=== PATIENT | female | born 1950 | race Caucasian/White ===

== ENCOUNTER 2016-07-11 13:25 | Outpatient (RCR) | payer MEDICARE, OTHER ==
--- OUTSIDE RECORDS SUMMARY | 2016-07-10 17:58 | XMS REPORT | Continuity of Care Document ---
Author Author [facility] Organization [facility] Address Unknown Phone Unavailable Care Team Providers Care Digital Hardware Design Engineer Name Role Phone DAQUAN AVENDANO MD PCP Insurance Providers Payer Name Policy Number Subscriber Name Relationship Wps Medicare [id number] Chloe Greer 18 Self / Same As Patient [employer] [id number] Chloe Greer 18 Self / Same As Patient Advance Directives Directive Response Recorded Date/Time Advance Directives No 09/09/15 12:00am Health Care Power of Project Management Instructor No 09/08/15 9:01pm Organ Donor Yes 09/09/15 12:00am Problems Active Problems Medical Problem Onset Date Status Chest pain Unknown Acute Constipation Unknown Acute Fracture of fifth toe, right, closed Unknown Acute Medications Current Home Medications Medication Dose Units Route Directions Days/Qty Instructions Start Date Carisoprodol 350 Mg 350 Mg Oral Twice A Day 11/01/09 Gemfibrozil (Lopid) 600 Mg 600 Mg Oral Twice A Day 11/01/09 Amitriptyline Hcl (Elavil) 25 Mg 25 Tab Oral Bedtime 11/01/09 Potassium 99 Mg 198 Mg Oral Bedtime TAKES 2 TABS AT BEDTIME 11/01/09 Milnacipran Hcl 50 Mg 50 Mg Oral Daily 11/19/12 Omeprazole 20 Mg 20 Mg Oral Twice A Day 11/19/12 Cholecalciferol 5,000 Unit 5,000 Unit Oral Daily 11/19/12 Cyanocobalamin (Vitamin B 12 Injecting) 1,000 Mcg/Ml 1 Ml Injection Every 2 Weeks LAST DOSE 04-06-13 11/19/12 Diazepam (Valium) 5 Mg 5 Mg Oral Twice A Day 11/19/12 Selenium 200 Mcg 200 Mcg Oral Daily 11/19/12 Levothyroxine Sodium (Levothroid) 25 Mcg 25 Mcg Oral Daily 11/19/12 Guaifenesin 400 Mg 400 Mg Oral Twice A Day 11/19/12 Ascorbate Calcium/Bioflav 1 Each 1,000 Mg Oral Daily 11/19/12 Estradiol 42.5 Gm 1 Appful Vaginal Weekly 11/19/12 Magnesium Oxide 400 Mg 400 Mg Oral Daily 11/19/12 Clonazepam 1 Mg 1 Mg Oral Twice A Day 04/29/13 Vitamin E (Dl,Tocopheryl Acet) 1,000 Unit 1,000 Unit Oral Daily Loratadine 10 Mg 10 Mg Oral Daily 05/21/15 Amlodipine Besylate 5 Mg 5 Mg Oral Three Times A Day 09/09/15 Ibuprofen 200 Mg 600 Mg Oral Four Times Daily 120 09/09/15 Methocarbamol 750 Mg 750 Mg Oral Twice A Day 09/09/15 Past Home Medications Medication Directions Ordered Status Pregabalin 75 Mg Capsule, 11/01/09 Discontinued [Vitamin E 400U] , 11/01/09 Discontinued Carvedilol (Coreg) 3.125 Mg Tablet, 11/01/09 Discontinued Terazosin Hcl 2 Mg Tab, 11/01/09 Discontinued Citalopram Hydrobromide 20 Mg Tablet, 11/01/09 Discontinued Ibandronate Sodium 2.5 Mg Tablet, 11/01/09 Discontinued Fexofenadine Hcl 180 Mg Tablet, 11/01/09 Discontinued Ranitidine Hcl 150 Mg Tablet, 11/01/09 Discontinued Esomeprazole Magnesium 40 Mg Capsule., 11/01/09 Discontinued Lidocaine 1 Ea Patch, 11/01/09 Discontinued Propoxyphene Hcl/Acetaminophen 1 Tab Tablet, 11/01/09 Discontinued Acetaminophen/Hydrocodone Bitart 1 Each Tablet, 1 Each Oral Q 4 - 6 Hr Prn Discontinued Promethazine Hcl 25 Mg Tablet, 1 Tab Oral Four Times Daily 11/01/09 Discontinued Clonazepam 0.5 Mg Tablet, 0.5 Mg Oral Daily 11/19/12 Discontinued Clonazepam (Klonopin) 0.5 Mg Tablet, 1 Mg Oral Bedtime 11/19/12 Discontinued Vitamin E 800 Unit Capsule, 800 Unit Oral Daily 11/19/12 Discontinued Amlodipine Besylate (Norvasc 5 Mg) 5 Mg Tablet, 5 Mg Oral Twice A Day Discontinued Oxycodone Hcl/Acetaminophen 1 Tab Tablet, 1 - 2 Tab Oral Every 3 Hours as needed 11/24/12 Discontinued Docusate Sodium 100 Mg Capsule, 100 Mg Oral Twice A Day 11/24/12 Discontinued Dicyclomine Hcl 10 Mg Capsule, 10 Mg Oral Four Times Daily 04/29/13 Discontinued Ketorolac Tromethamine 10 Mg Tablet, 10 Mg Oral Every 6 Hours as needed 04/29 Discontinued Oxycodone Hcl/Acetaminophen 1 Each Tablet, 1 - 2 Each Oral Q4-6H Prn Discontinued Sennosides/Docusate Sodium 1 Each Tablet, 1 Each Oral Twice A Day for Constipation 05/08/13 Discontinued Meperidine Hcl 50 Mg Tablet, 50 Mg Oral Every 4HRS as needed for Pain Discontinued Social History Social History Problem Response Recorded Date/Time Alcohol Use Occasionally Uses 09/09/2015 12:00am Recreational Drug Use No 09/09/2015 12:00am Recent Foreign Travel No 11/01/2015 10:21am Sexually Transmitted Disease No 09/09/2015 12:00am HIV/AIDS No 09/09/2015 12:00am Do you dip or chew tobacco? No 09/09/2015 12:00am Hospital Discharge Instructions No hospital discharge instructions. Plan of Care Prescriptions See Medication Section Functional Status No functional status results. Allergies, Adverse Reactions, Alerts Allergen Type Severity Reaction Status Last Updated sumatriptan succinate Allergy Unknown Active 05/20/15 nebivolol HCl Allergy Unknown Active 05/20/15 rizatriptan benzoate Allergy Unknown Active 05/20/15 Penicillins ([id number]) Allergy Mild Active 11/01/09 Sulfa (Sulfonamide Antibiotics) ([id number]) Allergy Mild Active lisinopril ([id number]) Allergy Unknown Active 05/20/15 Morphine Allergy Unknown Active 05/20/15 Codeine Allergy Mild Active 11/01/09 hydrocodone ([id number]) Allergy Unknown Active 05/20/15 Oxycodone Allergy Severe RASH Active 05/08/13 Sumatriptan Allergy Unknown Active 05/20/15 Tramadol Allergy Mild Active 11/01/09 shrimp Allergy Mild Active 05/22/15 Immunizations Name Given Type Date of Pneumonia Vaccine 06/06/12 Historical Date of Influenza Vaccine 04/13/15 Historical Hepatitis A No Historical Hepatitis B No Historical Tetanus Booster (TDap) Less than 5yrs Historical Vital Signs No known vital signs results. Results Microbiology Results Procedure Source Result Collection Date/Time Result Date/Time Anaerobic Culture Tissue, Ulcer No growth 11/01/2015 11:45am 11/03/2015 12: 31pm Wound Culture Tissue, Ulcer No growth 11/01/2015 11:45am 11/02/2015 9:16am Procedures No known history of procedures. Encounters Encounter Location Arrival/Admit Date Discharge/Depart Date Attending Provider Discharged Recurring [facility] 12/19/15 11:21am 12:00pm DENAE KEENAN MD
[2016-07-10 18:37] LABS: BASOPHILS % (AUTO) 0 % (0-10); EOSINOPHILS # (AUTO) 0.2 10^3/uL (0.0-0.3); EOSINOPHILS % (AUTO) 3 % (0-10); LYMPHOCYTES % (AUTO) 26 % (12-44); MEAN CORPUSCULAR HEMOGLOBIN 32 PG (25-34); MEAN CORPUSCULAR HGB CONC 35 G/DL (32-36); MEAN CORPUSCULAR VOLUME 90 FL (80-99); MEAN PLATELET VOLUME 11.1 FL (7.4-10.4); MONOCYTES # (AUTO) 0.9 X 10^3 (0.0-1.0); MONOCYTES % (AUTO) 12 % (0-12); NEUTROPHILS # (AUTO) 4.4 X 10^3 (1.8-7.8); NEUTROPHILS % (AUTO) 59 % (42-75); PLATELET COUNT 251 10^3/uL (130-400); RED BLOOD COUNT 4.24 10^6/uL (4.35-5.85); RED CELL DISTRIBUTION WIDTH 14.8 % (10.0-14.5); WHITE BLOOD COUNT 7.4 10^3/uL (4.3-11.0)
--- NOTE | 2016-07-10 18:40 | Diagnostic Imaging Report ---
INDICATION: Cough, weakness, fever. Compared 09/08/2015. FINDINGS: Interval sternotomy is noted. No wire fracture identified. Heart size within the upper limits of normal, stable. No overt vascular congestion and no evidence for edema. No pleural fluid. Air trapping and COPD chronic. IMPRESSION: Chronic and postoperative change. No acute-appearing abnormality. Dictated by: Dictated on workstation # [id number]
[2016-07-10 18:58] LABS: BILIRUBIN,URINE NEGATIVE (NEGATIVE); KETONES,URINE NEGATIVE (NEGATIVE); LEUKOCYTE ESTERASE ,URINE NEGATIVE (NEGATIVE); NITRITE,URINE NEGATIVE (NEGATIVE); PH,URINE 7 (5-9); PROTEIN,URINE NEGATIVE (NEGATIVE); UROBILINOGEN,URINE NORMAL (NORMAL)
[2016-07-10 19:06] LABS: ALANINE AMINOTRANSFERASE 17 U/L (0-55); ALBUMIN 4.7 G/DL (3.2-4.5); ANION GAP 12 MMOL/L (5-14); ASPARTATE AMINO TRANSFERASE 20 U/L (5-34); BILIRUBIN,TOTAL 0.3 MG/DL (0.1-1.0); BLOOD UREA NITROGEN 8 MG/DL (7-18); BUN/CREATININE RATIO 11; CALCIUM 9.2 MG/DL (8.5-10.1); CARBON DIOXIDE 25 MMOL/L (21-32); CHLORIDE 103 MMOL/L (98-107); CREATININE SERUM 0.75 MG/DL (0.60-1.30); GFR ESTIMATED > 60; GLUCOSE 89 MG/DL (70-105); POTASSIUM 3.4 MMOL/L (3.6-5.0); SODIUM 140 MMOL/L (135-145)
[~2016-07-11 13:25] MED LIST: AMIT25TA9 PO; AMLO5TAB2 PO; ASCO1TAB36 PO; CARV3.122; CHOL50003 PO; CLON0.5T3 PO; CLON1TAB3 PO; CRS350T PO; CTLP20T; CYAN100053 IJ; DCS100C PO; DIAZ5TAB3 PO; DICY10CA12 PO; ESTR42.52 VG; FEXO180T; GEMF600T3 PO; GUAI400T11 PO; HYDR-707 PO; IBAN2.5T; IBUP-792 PO; IBUP200C75 PO; KETO-22 PO; LD5PT; LORA10TA7 PO; LORA10TA76 PO; LVT.025T PO; MAGN400C PO; MEPE50TA PO; METH-313 PO; METH750T3 PO; MILN50TA6 PO; MTH750T PO; NF-ESOM40C; OMEP20CA12 PO; OXYC-12 PO; OXYC-272 PO; POTA99TA7 PO; PREG75CA; PRM25T PO; PROP1TAB77; RNT150T; SELE200T2 PO; SENN-101 PO; TRZS2T; VITA-198 PO; VITA800C PO; VITAMIN E
--- OUTSIDE RECORDS SUMMARY | 2016-07-11 13:28 | XMS REPORT | Continuity of Care Document ---
Author Author [facility] Organization [facility] Address Unknown Phone Unavailable Care Team Providers Care Staff Certified Nurse Midwife Name Role Phone DAQUAN AVENDANO MD PCP Insurance Providers Payer Name Policy Number Subscriber Name Relationship Wps Medicare [id number] Chloe Greer 18 Self / Same As Patient [employer] [id number] Chloe Greer 19 Self / Same As Patient Advance Directives Directive Response Recorded Date/Time Advance Directives No 09/09/15 12:00am Health Care Power of It Senior Software Engineer Java No 09/08/15 9:01pm Organ Donor Yes 09/09/15 [...] rizatriptan benzoate Allergy Unknown Active 05/20/15 Penicillins ([id number]) Allergy Mild Active 11/01/09 Sulfa (Sulfonamide Antibiotics) ([id number]) Allergy Mild Active lisinopril ([id number]) Allergy Unknown Active 05/20/15 Morphine Allergy Unknown Active 05/20/15 Codeine Allergy Mild Active 11/01/09 hydrocodone ([id number]) Allergy Unknown Active 05/20/15 Oxycodone Allergy Severe [...] Discharge/Depart Date Attending Provider Discharged Recurring [facility] 12/19/15 11:21am 12:00pm DENAE KEENAN MD
== END 2016-07-11 13:26 | disposition home or self-care (01) ==
LOC: RAD 13:25
PROVIDERS: ATTEND Internal Medicine
DX: R05 Cough (principal); R19.7 Diarrhea, unspecified; R50.9 Fever, unspecified
CPT/HCPCS: 36415; 71020; 80053; 81000; 85025; 87324; 87449; 87493

== ENCOUNTER 2017-01-01 05:40 | Outpatient (CLI) | payer MEDICARE, OTHER ==
[~2017-01-01] VITALS: Ht 157.5 cm; Wt 59.0 kg
[2017-01-01] MEDS ORDERED: ASPI-586 PO (11:09)
[2017-01-01] MEDS ORDERED: POTA10TA10 PO (11:09)
[2017-01-01] MEDS ORDERED: FURO-125 PO (11:09)
[2017-01-01] MEDS ORDERED: BACL10TA PO (11:09)
[2017-01-01] MEDS ORDERED: CLOP75TA28 PO (11:09)
== END 2017-01-01 11:10 ==
LOC: PREOP 05:40
PROVIDERS: ATTEND Internal Medicine
DX: Z01.818 Encounter for other preprocedural examination (principal); R13.10 Dysphagia, unspecified

== ENCOUNTER 2017-01-03 09:03 | Day surgery (SDC) | payer MEDICARE, OTHER ==
[~2017-01-03] VITALS: Ht 157.5 cm; Wt 59.0 kg
[~2017-01-03 09:03] MED LIST changes: +ASPI-586 PO; +BACL10TA PO; +CLOP75TA28 PO; +FURO-125 PO; +POTA10TA10 PO
[2017-01-03 09:05] VITALS: BP 120/48
--- OUTSIDE RECORDS SUMMARY | 2017-01-03 09:09 | XMS REPORT | Continuity of Care Document ---
Author Author [facility] Organization [facility] Address Unknown Phone Unavailable Allergies Active Description Code Type Severity Reaction Onset Reported/Identified Relationship to Patient Clinical Status Yes codeine [id number] Drug Allergy Mild N/A 11/01/2009 Yes Penicillins [id number] Drug Allergy Mild N/A 11/01/2009 Yes tramadol [id number] Drug Allergy Mild N/A 11/01/2009 Yes Sulfa (Sulfonamide Antibiotics) [id number] Drug Allergy Mild N/A 09/28/2010 Yes oxycodone [id number] Drug Allergy Severe RASH 05/08/2013 Yes hydrocodone [id number] Drug Allergy Unknown N/A 05/20/2015 Yes lisinopril [id number] Drug Allergy Unknown N/A 05/20/2015 Yes morphine [id number] Drug Allergy Unknown N/A 05/20/2015 Yes nebivolol HCl [id number] Drug Allergy Unknown N/A 05/20/2015 Yes rizatriptan benzoate [id number] Drug Allergy Unknown N/A 05/20/2015 Yes sumatriptan [id number] Drug Allergy Unknown N/A 05/20/2015 Yes sumatriptan succinate [id number] Drug Allergy Unknown N/A 05/20/2015 Yes SHRIMP [id number] Drug Allergy Mild N/A 05/22/2015 Medications Problems Date Dx Coded Attending Type Code Diagnosis Diagnosed By 06/05/1325 DAQUAN AVENDANO MD Ot R05 COUGH 06/05/1325 DAQUAN AVENDANO MD Ot R19.7 DIARRHEA, UNSPECIFIED 06/05/1325 DAQUAN AVENDANO MD Ot R50.9 FEVER, UNSPECIFIED 01/14/2011 Ot 724.1 01/14/2011 Ot V57.1 07/09/2011 Ot 723.1 CERVICALGIA 07/09/2011 Ot 784.0 HEADACHE 07/09/2011 Ot V57.1 PHYSICAL THERAPY NEC 01/17/2012 Ot 530.81 ESOPHAGEAL REFLUX 01/17/2012 Ot 535.40 OTH SPECIFIED GASTRITIS,W/O MENTION OF H 11/24/2012 YAMILKA JIMENEZ MD Ot 598.9 URETHRAL STRICTURE NOS 11/24/2012 YAMILKA JIMENEZ MD Ot 618.4 UTERVAGINAL PROLAPSE NOS 11/24/2012 YAMILKA JIMENEZ MD Ot 618.6 VAGINAL ENTEROCELE 11/24/2012 YAMILKA JIMENEZ MD Ot 625.6 FEM STRESS INCONTINENCE 01/06/2013 DAQUAN AVENDANO MD Ot 723.1 CERVICALGIA 01/06/2013 DAQUAN AVENDANO MD Ot 729.1 MYALGIA AND MYOSITIS NOS 01/06/2013 DAQUAN AVENDANO MD Ot V57.1 PHYSICAL THERAPY NEC 04/13/2013 DAQUAN AVENDANO MD Ot 723.1 CERVICALGIA 04/13/2013 DAQUAN AVENDANO MD Ot 729.1 MYALGIA AND MYOSITIS NOS 04/13/2013 DAQUAN AVENDANO MD Ot V57.1 PHYSICAL THERAPY NEC 05/04/2013 FRANCY HALL, ARIANA Atkins Ot 574.10 CHOLELITH W CHOLECYS NEC 05/08/2013 LINDA SAWYER APRN Ot 564.00 UNSPEC CONSTIPATION 12/10/2013 DAQUAN AVENDANO MD Ot 723.1 CERVICALGIA 12/10/2013 DAQUAN AVENDANO MD Ot 729.1 MYALGIA AND MYOSITIS NOS 12/10/2013 DAQUAN AVENDANO MD Ot V57.1 PHYSICAL THERAPY NEC 10/13/2014 Ot V76.12 05/22/2015 ALAN DENNEY MD Ot E03.9 HYPOTHYROIDISM, UNSPECIFIED 05/22/2015 ALAN DENNEY MD, Ot F17.210 NICOTINE DEPENDENCE, CIGARETTES, UNCOMPL 05/22/2015 ALAN DENNEY MD Ot I73.00 RAYNAUD'S SYNDROME WITHOUT GANGRENE 05/22/2015 ALAN DENNEY MD Ot M79.7 FIBROMYALGIA 05/22/2015 ALAN DENNEY MD Ot S82.301A UNSP FRACTURE OF LOWER END OF RIGHT TIBI 05/22/2015 ALAN DENNEY MD, Ot S82.61XA DISP FX OF LATERAL MALLEOLUS OF RIGHT FI 05/22/2015 ALAN DENNEY MD, Ot S92.511A DISP FX OF PROXIMAL PHALANX OF RIGHT LES 05/22/2015 ALAN DENNEY MD Ot W18.09XA STRIKING AGAINST OTH OBJECT W SUBSEQUENT 05/22/2015 ALAN DENNEY MD Ot Y99.8 OTHER EXTERNAL CAUSE STATUS 05/24/2015 ROMANA HALL, DAQUAN Santo Ot I73.9 06/14/2015 ROMANA HALL, DAQUAN Santo Ot I73.9 07/27/2015 DAQUAN AVENDANO MD Ot I73.9 08/09/2015 DAQUAN AVENDANO MD Ot I73.9 09/09/2015 JABARI HALL FACC, ALI FACP CCDS Ot E78.5 HYPERLIPIDEMIA, UNSPECIFIED 09/09/2015 JABARI HALL FACC, ALI FACP CCDS Ot F17.210 NICOTINE DEPENDENCE, CIGARETTES , UNCOMPL 09/09/2015 JABARI SHRESTHAC, ALI FACP CCDS Ot 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 09/09/2015 JABARI SHRESTHAC, ALI FACP CCDS Ot I10 ESSENTIAL (PRIMARY) HYPERTENSION 09/09/2015 JABARI SHRESTHAC, ALI FACP CCDS Ot I25.110 ATHSCL HEART DISEASE OF [place] COR ART W 09/09/2015 JABARI HALL FACC, ALI FACP CCDS Ot I70.213 ATHSCL [place] ARTERIES OF EXTRM W INTRMT 09/09/2015 JABARI SHRESTHAC, ALI FACP CCDS Ot I73.00 RAYNAUD'S SYNDROME WITHOUT GANGRENE 09/09/2015 JABARI SHRESTHAC, ALI FACP CCDS Ot M79.7 FIBROMYALGIA 09/09/2015 JABARI HALL FACC, ALI FACP CCDS Ot Z79.899 OTHER HALF-WAY (CURRENT) DRUG THERAPY 09/18/2015 JABARI SHRESTHAC, ALI FACP CCDS Ot E78.5 09/18/2015 JABARI SHRESTHAC, ALI FACP CCDS Ot F17.210 09/18/2015 JABARI HALL FACC, ALI FACP CCDS Ot G95.0 09/18/2015 JABARI HALL FACC, ALI FACP CCDS Ot I10 09/18/2015 JABARI SHRESTHAC, ALI FACP CCDS Ot I25.110 09/18/2015 JABARI HALL FACC, ALI FACP CCDS Ot I70.213 09/18/2015 JABARI HALL FAC, ALI FACP CCDS Ot I73.00 09/18/2015 JABARI HALL FAC, ALI FACP CCDS Ot M79.7 09/18/2015 JABARI MD FAC, ALI FACP CCDS Ot Z79.899 09/22/2015 JABARI HALL FAC, ALI FACP CCDS Ot E78.5 09/22/2015 JABARI HALL FAC, ALI FACP CCDS Ot F17.210 09/22/2015 JABARI MD FAC, ALI FACP CCDS Ot G95.0 09/22/2015 JABARI HALL FAC, ALI FACP CCDS Ot I10 09/22/2015 JABARI HALL FAC, ALI FACP CCDS Ot I25.110 09/22/2015 JABARI MD [facility], ALI FACP CCDS Ot I70.213 09/22/2015 JABARI HALL FAC, ALI FACP CCDS Ot I73.00 09/22/2015 JABARI HALL [facility], ALI FACP CCDS Ot M79.7 09/22/2015 JABARI HALL [facility], ALI FACP CCDS Ot Z79.899 09/25/2015 CARSON HALL, FARHAT Ot Z48.812 09/25/2015 CARSON HALL, FARHAT Ot Z95.1 10/10/2015 CARSON HALL, FARHAT Ot J95.89 10/12/2015 CARSON HALL, FARHAT Ot Z48.812 10/12/2015 CARSON HALL, FARHAT Ot Z95.1 10/15/2015 CARSON HALL, FARHAT Ot J95.89 10/16/2015 Ot V76.12 10/16/2015 Ot 723.1 10/16/2015 Ot 784.0 10/16/2015 Ot V57.1 10/16/2015 Ot 553.21 10/16/2015 Ot V81.5 10/16/2015 Ot V76.12 10/16/2015 Ot V72.84 10/16/2015 TONY HALL, YAMILKA Quiroz Ot V76.12 10/16/2015 TONY HALL, YAMILKA Quiroz Ot 285.9 10/16/2015 TONY HALL, YAMILKA Quiroz Ot 618.04 10/16/2015 TONY HALL, YAMILKA Richie Ot V72.63 10/16/2015 TONY HALL, YAMILKA Richie Ot V72.81 10/16/2015 TONY HALL, YAMILKA Richie Ot V74.8 10/16/2015 TONY HALL, YAMILKA Quiroz Ot 787.3 10/16/2015 TONY HALL, YAMILKA Richie Ot 789.00 10/16/2015 ROMANA HALL, DAQUAN Santo Ot 786.30 10/16/2015 FRANCY HALL, ARIANA M Ot 574.20 10/16/2015 FRANCY HALL, ARIANA M Ot V72.63 10/16/2015 FRANCY HALL, ARIANA M Ot V74.8 10/16/2015 Ot V76.12 10/16/2015 ROMANA HALL, DAQUAN Santo Ot I73.9 10/16/2015 ROMANA HALL, DAQUAN Santo Ot I73.9 10/16/2015 CARSON HALL, FARHAT Ot Z48.812 10/16/2015 CARSON HALL, FARHAT Ot Z95.1 10/16/2015 CARSON HALL, FARHAT Ot J95.89 10/17/2015 DAQUAN AVENDANO MD Ot M54.6 10/31/2015 CARSON HALL, FARHAT Ot J95.89 OT POSTPROC COMPLICATIONS AND DISORDERS 11/08/2015 ROMANA HALL, DAQUAN Santo Ot M54.6 PAIN IN THORACIC SPINE 11/14/2015 JABARI HALL FACC, OBI SHRESTHAP CCDS Ot I25.10 ATHSCL HEART DISEASE OF [place] CORONARY 11/14/2015 JABARI HALL FACC, OBI FACP CCDS Ot I73.00 RAYNAUD'S SYNDROME WITHOUT GANGRENE 11/14/2015 JABARI HALL FACC, OBI FACP CCDS Ot I73.9 PERIPHERAL VASCULAR DISEASE, UNSPECIFIED 11/14/2015 JABARI HALL FACC, OBI FACP CCDS Ot R00.2 PALPITATIONS 11/14/2015 JABARI HALL FACC, ALI FACP CCDS Ot Z95.1 PRESENCE OF AORTOCORONARY BYPASS GRAFT 11/14/2015 NAVARRO HALL, ROMELIA Lopez Ot M54.6 PAIN IN THORACIC SPINE 11/14/2015 SHLOMO HALL, DENAE Quiroz Ot I70.232 ATHSCL [place] ARTERIES OF RIGHT LEG W UL 11/14/2015 DENAE KEENAN MD Ot I73.00 RAYNAUD'S SYNDROME WITHOUT GANGRENE 11/14/2015 DENAE KEENAN MD, Ot I87.311 CHRONIC VENOUS HYPERTENSION W ULCER OF R 11/14/2015 DENAE KEENAN MD, Ot L97.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 CHRONIC ULCER OF RIGHT CALF 11/14/2015 DENAE KEENAN MD, Ot T65.222A TOXIC EFFECT OF TOBACCO CIGARETTES, SELF 11/15/2015 DAQUAN AVENDANO MD Ot E03.9 HYPOTHYROIDISM, UNSPECIFIED 11/15/2015 DAQUAN AVENDANO MD Ot I25.10 ATHSCL HEART DISEASE OF [place] CORONARY 11/15/2015 DAQUAN AVENDANO MD Ot I73.9 PERIPHERAL VASCULAR DISEASE, UNSPECIFIED 11/21/2015 PAMELA LLOYD Ot R00.2 PALPITATIONS 11/24/2015 NAVARRO HALL, ROMELIA Lopez Ot M54.6 PAIN IN THORACIC SPINE 11/28/2015 DENAE KEENAN MD, Ot M25.571 PAIN IN RIGHT ANKLE AND JOINTS OF RIGHT 11/28/2015 DENAE KEENAN MD Ot W19.XXXA UNSPECIFIED FALL, INITIAL ENCOUNTER 11/28/2015 DENAE KEENAN MD Ot Y99.8 OTHER EXTERNAL CAUSE STATUS 11/30/2015 DENAE KEENAN MD, Ot I70.232 ATHSCL [place] ARTERIES OF RIGHT LEG W UL 11/30/2015 DENAE KEENAN MD, Ot I73.00 RAYNAUD'S SYNDROME WITHOUT GANGRENE 11/30/2015 DENAE KEENAN MD, Ot I87.311 CHRONIC VENOUS HYPERTENSION W ULCER OF R 11/30/2015 DENAE KEENAN MD, Ot L97.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 CHRONIC ULCER OF RIGHT CALF 11/30/2015 DENAE KEENAN MD, Ot T65.222A TOXIC EFFECT OF TOBACCO CIGARETTES, SELF 12/11/2015 DENAE KEENAN MD Ot I70.232 ATHSCL [place] ARTERIES OF RIGHT LEG W UL 12/11/2015 DENAE KEENAN MD, Ot I73.00 RAYNAUD'S SYNDROME WITHOUT GANGRENE 12/11/2015 DENAE KEENAN MD Ot I87.311 CHRONIC VENOUS HYPERTENSION W ULCER OF R 12/11/2015 DENAE KEENAN MD, Ot L97.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 CHRONIC ULCER OF RIGHT CALF 12/11/2015 DENAE KEENAN MD, Ot T65.222A TOXIC EFFECT OF TOBACCO CIGARETTES, SELF 12/13/2015 JABARI HALL [facility], [facility] CCDS Ot I25.10 ATHSCL HEART DISEASE OF [place] CORONARY 12/13/2015 JABARI HALL [facility], [facility] CCDS Ot I73.00 RAYNAUD'S SYNDROME WITHOUT GANGRENE 12/13/2015 JABARI HALL [facility], [facility] CCDS Ot I73.9 PERIPHERAL VASCULAR DISEASE, UNSPECIFIED 12/13/2015 JABARI HALL [facility], [facility] CCDS Ot R00.2 PALPITATIONS 12/13/2015 JABARI HALL [facility], [facility] CCDS Ot Z95.1 PRESENCE OF AORTOCORONARY BYPASS GRAFT 12/15/2015 PAMELA LLOYD ATLASSIAN ADMINISTRATOR Ot I25.10 ATHSCL HEART DISEASE OF [place] CORONARY 12/15/2015 BAIPAMELA COSTA L ATLASSIAN ADMINISTRATOR Ot I73.00 RAYNAUD'S SYNDROME WITHOUT GANGRENE 12/15/2015 HUGO LLOYDHER L ATLASSIAN ADMINISTRATOR Ot I73.9 PERIPHERAL VASCULAR DISEASE, UNSPECIFIED 12/15/2015 ALISSAMAHUGOPAMELA L ATLASSIAN ADMINISTRATOR Ot R00.2 PALPITATIONS 12/15/2015 BAIMA PAMELA L ATLASSIAN ADMINISTRATOR Ot Z95.1 PRESENCE OF AORTOCORONARY BYPASS GRAFT 12/19/2015 DENAE KEENAN MD Ot I70.232 ATHSCL [place] ARTERIES OF RIGHT LEG W UL 12/19/2015 DENAE KEENAN MD Ot I73.00 RAYNAUD'S SYNDROME WITHOUT GANGRENE 12/19/2015 DENAE KEENAN MD Ot I87.311 CHRONIC VENOUS HYPERTENSION W ULCER OF R 12/19/2015 DENAE KEENAN MD Ot L97.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 CHRONIC ULCER OF RIGHT CALF 12/19/2015 DENAE KEENAN MD, Ot T65.222A TOXIC EFFECT OF TOBACCO CIGARETTES, SELF 12/21/2015 DENAE KEENAN MD Ot M25.571 PAIN IN RIGHT ANKLE AND JOINTS OF RIGHT 12/21/2015 DENAE KEENAN MD Ot W19.XXXA UNSPECIFIED FALL, INITIAL ENCOUNTER 12/21/2015 DENAE KEENAN MD Ot Y99.8 OTHER EXTERNAL CAUSE STATUS 12/22/2015 PAMELA LLOYD ATLASSIAN ADMINISTRATOR Ot I25.10 ATHSCL HEART DISEASE OF [place] CORONARY 12/22/2015 PAMELA LLOYD ATLASSIAN ADMINISTRATOR Ot I73.00 RAYNAUD'S SYNDROME WITHOUT GANGRENE 12/22/2015 PAMELA LLOYD ATLASSIAN ADMINISTRATOR Ot I73.9 PERIPHERAL VASCULAR DISEASE, UNSPECIFIED 12/22/2015 PAMELA LLOYD ATLASSIAN ADMINISTRATOR Ot R00.2 PALPITATIONS 12/22/2015 PAMELA LLOYD ATLASSIAN ADMINISTRATOR Ot Z95.1 PRESENCE OF AORTOCORONARY BYPASS GRAFT 12/25/2015 SHLOMO HALL, DENAE Quiroz Ot M25.571 PAIN IN RIGHT ANKLE AND JOINTS OF RIGHT 12/25/2015 DENAE KEENAN MD Ot W19.XXXA UNSPECIFIED FALL, INITIAL ENCOUNTER 12/25/2015 DENAE KEENAN MD Ot Y99.8 OTHER EXTERNAL CAUSE STATUS 07/11/2016 Ot 723.1 CERVICALGIA 07/11/2016 Ot 784.0 HEADACHE 07/11/2016 Ot V57.1 PHYSICAL THERAPY NEC 07/11/2016 Ot 553.21 INCISIONAL HERNIA 07/11/2016 Ot V81.5 SCREEN FOR NEPHROPATHY 07/11/2016 Ot V76.12 OTH SCREEN MAMMO-MALIGN NEOPLASM OF [place] 07/11/2016 Ot V72.84 EXAM PRE-OPERATIVE NOS 07/11/2016 YAMILKA JIMENEZ MD Ot V76.12 OTH SCREEN MAMMO-MALIGN NEOPLASM OF [place] 07/11/2016 YAMILKA JIMENEZ MD Ot 285.9 ANEMIA NOS 07/11/2016 YAMILKA JIMENEZ MD Ot 618.04 RECTOCELE 07/11/2016 YAMILKA JIMENEZ MD, Ot V72.63 PRE-PROCEDURAL LABORATORY EXAMINATION 07/11/2016 YAMILKA JIMENEZ MD, Ot V72.81 [id number] CARDIOVASCULAR 07/11/2016 YAMILKA JIMENEZ MD, Ot V74.8 SCREEN-BACTERIAL DIS NEC 07/11/2016 YAMILKA JIMENEZ MD Ot 787.3 FLATUL/ERUCTAT/GAS PAIN 07/11/2016 YAMILKA JIMENEZ MD Ot 789.00 ABDOMINAL PAIN, UNSPECIFIED SITE 07/11/2016 ROMANA HALL, DAQUAN Santo Ot 786.30 HEMOPTYSIS, UNSPECIFIED 07/11/2016 FRANCY HALL, ARIANA Atkins Ot 574.20 CHOLELITHIASIS NOS 07/11/2016 RFANCY HALL, ARIANA Atkins Ot V72.63 PRE-PROCEDURAL LABORATORY EXAMINATION 07/11/2016 FRANCY HALL, ARIANA Atkins Ot V74.8 SCREEN-BACTERIAL DIS NEC 07/11/2016 Ot V76.12 OTH SCREEN MAMMO-MALIGN NEOPLASM OF [place] 07/11/2016 DAQUAN AVENDANO MD Ot I73.9 PERIPHERAL VASCULAR DISEASE, UNSPECIFIED 07/11/2016 DAQUAN AVENDANO MD Ot I73.9 PERIPHERAL VASCULAR DISEASE, UNSPECIFIED 07/11/2016 FARHAT BYRD MD, Ot Z48.812 ENCNTR FOR SURGICAL AFTCR FOLLOWING SURG 07/11/2016 FARHAT BYRD MD, Ot Z95.1 PRESENCE OF AORTOCORONARY BYPASS GRAFT 07/11/2016 FARHAT BYRD MD Ot J95.89 OTH POSTPROC COMPLICATIONS AND DISORDERS 07/11/2016 DAQUAN AVENDANO MD Ot M54.6 PAIN IN THORACIC SPINE 07/11/2016 ROMELIA BRICEÑO MD Ot M54.6 PAIN IN THORACIC SPINE 07/11/2016 DAQUAN AVENDANO MD Ot E03.9 HYPOTHYROIDISM, UNSPECIFIED 07/11/2016 DAQUAN AVENDANO MD Ot I25.10 ATHSCL HEART DISEASE OF [place] CORONARY 07/11/2016 DAQUAN AVENDANO MD Ot I73.9 PERIPHERAL VASCULAR DISEASE, UNSPECIFIED 07/11/2016 BAIPAMELA COSTA L ATLASSIAN ADMINISTRATOR Ot I25.10 ATHSCL HEART DISEASE OF [place] CORONARY 07/11/2016 BAIPAMELA COSTA L ATLASSIAN ADMINISTRATOR Ot I73.00 RAYNAUD'S SYNDROME WITHOUT GANGRENE 07/11/2016 BAIMAPAMELA L ATLASSIAN ADMINISTRATOR Ot I73.9 PERIPHERAL VASCULAR DISEASE, UNSPECIFIED 07/11/2016 BAIPAMELA COSTA L ATLASSIAN ADMINISTRATOR Ot R00.2 PALPITATIONS 07/11/2016 PAMELA LLOYD ATLASSIAN ADMINISTRATOR Ot Z95.1 PRESENCE OF AORTOCORONARY BYPASS GRAFT 07/11/2016 JABARI HALL FACC, OBI GAMBOA CCDS Ot I25.10 ATHSCL HEART DISEASE OF [place] CORONARY 07/11/2016 JABARI HALL FACC, OBI GAMBOA CCDS Ot I73.00 RAYNAUD'S SYNDROME WITHOUT GANGRENE 07/11/2016 JABARI HALL FACC, [facility] CCDS Ot I73.9 PERIPHERAL VASCULAR DISEASE, UNSPECIFIED 07/11/2016 JABARI HALL FAC, [facility] CCDS Ot R00.2 PALPITATIONS 07/11/2016 JABARI HALL [facility], [facility] CCDS Ot Z95.1 PRESENCE OF AORTOCORONARY BYPASS GRAFT 07/11/2016 DENAE KEENAN MD Ot M25.571 PAIN IN RIGHT ANKLE AND JOINTS OF RIGHT 07/11/2016 DENAE KEENAN MD Ot W19.XXXA UNSPECIFIED FALL, INITIAL ENCOUNTER 07/11/2016 DENAE KEENAN MD Ot Y99.8 OTHER EXTERNAL CAUSE STATUS 07/11/2016 Ot 723.1 CERVICALGIA 07/11/2016 Ot 784.0 HEADACHE 07/11/2016 Ot V57.1 PHYSICAL THERAPY NEC 07/11/2016 Ot 553.21 INCISIONAL HERNIA 07/11/2016 Ot V81.5 SCREEN FOR NEPHROPATHY 07/11/2016 Ot V76.12 OTH SCREEN MAMMO-MALIGN NEOPLASM OF [place] 07/11/2016 Ot V72.84 EXAM PRE-OPERATIVE NOS 07/11/2016 YAMILKA JIMENEZ MD Ot V76.12 OTH SCREEN MAMMO-MALIGN NEOPLASM OF [place] 07/11/2016 YAMILKA JIMENEZ MD Ot 285.9 ANEMIA NOS 07/11/2016 YAMILKA JIMENEZ MD Ot 618.04 RECTOCELE 07/11/2016 YAMILKA JIMENEZ MD, Ot V72.63 PRE-PROCEDURAL LABORATORY EXAMINATION 07/11/2016 YAMILKA JIMENEZ MD, Ot V72.81 IZDA-XKI-MORKHYLHU CARDIOVASCULAR 07/11/2016 YAMILKA JIMENEZ MD, Ot V74.8 SCREEN-BACTERIAL DIS NEC 07/11/2016 YAMILKA JIMENEZ MD Ot 787.3 FLATUL/ERUCTAT/GAS PAIN 07/11/2016 YAMILKA JIMENEZ MD Ot 789.00 ABDOMINAL PAIN, UNSPECIFIED SITE 07/11/2016 ROMANA HALL, DAQUAN Santo Ot 786.30 HEMOPTYSIS, UNSPECIFIED 07/11/2016 FRANCY HALL, ARIANA Atkins Ot 574.20 CHOLELITHIASIS NOS 07/11/2016 ARIANA SEN MD Ot V72.63 PRE-PROCEDURAL LABORATORY EXAMINATION 07/11/2016 FRANCY HALL, ARIANA Atkins Ot V74.8 SCREEN-BACTERIAL DIS NEC 07/11/2016 Ot V76.12 OTH SCREEN MAMMO-MALIGN NEOPLASM OF [place] 07/11/2016 DAQUAN AVENDANO MD Ot I73.9 PERIPHERAL VASCULAR DISEASE, UNSPECIFIED 07/11/2016 DAQUAN AVENDANO MD Ot I73.9 PERIPHERAL VASCULAR DISEASE, UNSPECIFIED 07/11/2016 FARHAT BYRD MD, Ot Z48.812 ENCNTR FOR SURGICAL AFTCR FOLLOWING SURG 07/11/2016 FARHAT BYRD MD, Ot Z95.1 PRESENCE OF AORTOCORONARY BYPASS GRAFT 07/11/2016 FARHAT BYRD MD Ot J95.89 OTH POSTPROC COMPLICATIONS AND DISORDERS 07/11/2016 DAQUAN AVENDANO MD Ot M54.6 PAIN IN THORACIC SPINE 07/11/2016 NAVARRO HALL, ROMELIA Lopez Ot M54.6 PAIN IN THORACIC SPINE 07/11/2016 DAQUAN AVENDANO MD Ot E03.9 HYPOTHYROIDISM, UNSPECIFIED 07/11/2016 DAQUAN AVENDANO MD Ot I25.10 ATHSCL HEART DISEASE OF [place] CORONARY 07/11/2016 DAQUAN AVENDANO MD Ot I73.9 PERIPHERAL VASCULAR DISEASE, UNSPECIFIED 07/11/2016 PAMELA LLOYD L ATLASSIAN ADMINISTRATOR Ot I25.10 ATHSCL HEART DISEASE OF [place] CORONARY 07/11/2016 PAMELA LLOYD L ATLASSIAN ADMINISTRATOR Ot I73.00 RAYNAUD'S SYNDROME WITHOUT GANGRENE 07/11/2016 PAMELA LLOYD L ATLASSIAN ADMINISTRATOR Ot I73.9 PERIPHERAL VASCULAR DISEASE, UNSPECIFIED 07/11/2016 ALISSAMAPAMELA L ATLASSIAN ADMINISTRATOR Ot R00.2 PALPITATIONS 07/11/2016 PAMELA LLOYD L ATLASSIAN ADMINISTRATOR Ot Z95.1 PRESENCE OF AORTOCORONARY BYPASS GRAFT 07/11/2016 JABARI HALL FACC, OBI FACP CCDS Ot I25.10 ATHSCL HEART DISEASE OF [place] CORONARY 07/11/2016 JABARI HALL FACC, OBI FACP CCDS Ot I73.00 RAYNAUD'S SYNDROME WITHOUT GANGRENE 07/11/2016 JABARI HALL FACC, OBI SHRESTHAP CCDS Ot I73.9 PERIPHERAL VASCULAR DISEASE, UNSPECIFIED 07/11/2016 JABARI HALL FACC, ALI FACP CCDS Ot R00.2 PALPITATIONS 07/11/2016 JABARI HALL [facility], [facility] CCDS Ot Z95.1 PRESENCE OF AORTOCORONARY BYPASS GRAFT 07/11/2016 DENAE KEENAN MD, Ot M25.571 PAIN IN RIGHT ANKLE AND JOINTS OF RIGHT 07/11/2016 DENAE KEENAN MD, Ot W19.XXXA UNSPECIFIED FALL, INITIAL ENCOUNTER 07/11/2016 DENAE KEENAN MD, Ot Y99.8 OTHER EXTERNAL CAUSE STATUS 07/11/2016 DAQUAN AVENDANO MD, Ot R05 COUGH 07/11/2016 DAQUAN AVENDANO MD, Ot R19.7 DIARRHEA, UNSPECIFIED 07/11/2016 DAQUAN AVENDANO MD, Ot R50.9 FEVER, UNSPECIFIED Procedures Code Description Performed By Performed On [id number] REPOSITION RIGHT TIBIA WITH INT FIX, OPE 05/21/2015 [id number] REPOSITION RIGHT FIBULA WITH INT FIX, OP 05/21/2015 Results Test Result Range Complete blood count (CBC) with automated white blood cell (WBC) differential - 07/10/16 18:30 Blood leukocytes automated count (number/volume) 7.4 10*3/ uL 4.3-11.0 Blood erythrocytes automated count (number/volume) 4.24 10*6 /uL 4.35-5.85 Venous blood hemoglobin measurement (mass/volume) 13.4 g/dL 11.5-16.0 Blood hematocrit (volume fraction) 38 % 35-52 Automated erythrocyte mean corpuscular volume 90 [foz_us] 80-99 Automated erythrocyte mean corpuscular hemoglobin (mass per erythrocyte) 32 pg 25-34 Automated erythrocyte mean corpuscular hemoglobin concentration measurement ( mass/volume) 35 g/dL 32-36 Automated erythrocyte distribution width ratio 14.8 % 10.0-14.5 Automated blood platelet count (count/volume) 251 10*3/uL 130-400 Automated blood platelet mean volume measurement 11.1 [foz_ us] 7.4-10.4 Automated blood neutrophils/100 leukocytes 59 % 42-75 Automated blood lymphocytes/100 leukocytes 26 % 12-44 Blood monocytes/100 leukocytes 12 % 0-12 Automated blood eosinophils/100 leukocytes 3 % 0-10 Automated blood basophils/100 leukocytes 0 % 0-10 Blood neutrophils automated count (number/volume) 4.4 10*3 1.8-7.8 Blood lymphocytes automated count (number/volume) 2.0 10*3 1.0-4.0 Blood monocytes automated count (number/volume) 0.9 10*3 0.0-1.0 Automated eosinophil count 0.2 10*3/uL 0.0-0.3 Automated blood basophil count (count/volume) 0.0 10*3/uL 0.0-0.1 Comprehensive metabolic panel - 07/10/16 18:30 Serum or plasma sodium measurement (moles/volume) 140 mmol/ L 135-145 Serum or plasma potassium measurement (moles/volume) 3.4 mmol/L 3.6-5.0 Serum or plasma chloride measurement (moles/volume) 103 mmol /L 98-107 Carbon dioxide 25 mmol/L 21-32 Serum or plasma anion gap determination (moles/volume) 12 mmol/L 5-14 Serum or plasma urea nitrogen measurement (mass/volume) 8 mg /dL 7-18 Serum or plasma creatinine measurement (mass/volume) 0.75 mg /dL 0.60-1.30 Serum or plasma urea nitrogen/creatinine mass ratio 11 NRG Serum or plasma creatinine measurement with calculation of estimated glomerular filtration rate > NRG Serum or plasma glucose measurement (mass/volume) 89 mg/dL 70-105 Serum or plasma calcium measurement (mass/volume) 9.2 mg/dL 8.5-10.1 Serum or plasma total bilirubin measurement (mass/volume) 0.3 mg/dL 0.1-1.0 Serum or plasma alkaline phosphatase measurement (enzymatic activity/volume) 86 U/L 40-136 Serum or plasma aspartate aminotransferase measurement (enzymatic activity/ volume) 20 U/L 5-34 Serum or plasma alanine aminotransferase measurement (enzymatic activity/volume ) 17 U/L 0-55 Serum or plasma protein measurement (mass/volume) 7.0 g/dL 6.4-8.2 Serum or plasma albumin measurement (mass/volume) 4.7 g/dL 3.2-4.5 Clostridium difficile detection - 07/10/16 18:54 Clostridium difficile detection TNP NRG Complete urinalysis with reflex to culture - 07/10/16 18:55 Urine color determination YELLOW NRG Urine clarity determination SLIGHTLY CLOUDY NRG Urine pH measurement by test strip 7 5- 9 Specific gravity of urine by test strip 1.005 1.016-1.022 Urine protein assay by test strip, semi-quantitative NEGATIVE NEGATIVE Urine glucose detection by automated test strip NEGATIVE NEGATIVE Erythrocytes detection in urine sediment by light microscopy NEGATIVE NEGATIVE Urine ketones detection by automated test strip NEGATIVE NEGATIVE Urine nitrite detection by test strip NEGATIVE NEGATIVE Urine total bilirubin detection by test strip NEGATIVE NEGATIVE Urine urobilinogen measurement by automated test strip (mass/volume) NORMAL NORMAL Urine leukocyte esterase detection by dipstick NEGATIVE NEGATIVE Automated urine sediment erythrocyte count by microscopy (number/high power field) NONE NRG Automated urine sediment leukocyte count by microscopy (number/high power field ) NONE NRG Bacteria detection in urine sediment by light microscopy NONE NRG Squamous epithelial cells detection in urine sediment by light microscopy 2-5 NRG Crystals detection in urine sediment by light microscopy NONE NRG Casts detection in urine sediment by light microscopy NONE NRG Mucus detection in urine sediment by light microscopy NEGATIVE NRG Complete urinalysis with reflex to culture NO NRG C DIFFICILE AG + TOXIN A/B. - 07/11/16 11:00 RESULTS NEGATIVE FOR ANTIGEN AND TOXIN A/B NRG Encounters ACCT No. Visit Date/Time Discharge Status Pt. Type Provider Facility Loc./Unit Complaint [id number] 07/11/2016 13:25:00 2016 13:26:00 DIS Outpatient DAQUAN AVENDANO MD [facility] RAD COUGH [id number] 12/19/2015 11:21:00 2015 12:00:00 DIS Outpatient DENAE KEENAN MD [facility] WOUNDCARE [id number] 09/08/2015 23:45:00 2015 15:20:00 DIS Outpatient JABARI HALL FACC, OBI GAMBOA CCDS [facility] CATH CHEST PAIN [id number] 05/20/2015 22:10:00 2014 12:10:00 DIS Inpatient ОЛЕГ HALL, ALAN Mcnulty [facility] 4TH DISPLACED R DISTAL TIBIA-FIBULA FRACTURE [id number] 05/01/2015 11:18:00 2014 23:59:59 CLS Outpatient DAQUAN AVENDANO MD [facility] RAD CLAUDICATION [id number] 12/08/2013 13:50:00 2013 16:33:00 DIS Outpatient DAQUAN AVENDANO MD [facility] REHAB CERVICALGIA;FIBROMYALGIA [id number] 09/21/2013 14:40:00 2013 23:59:59 CLS Outpatient [id number] 05/08/2013 15:36:00 2012 17:42:00 DIS Emergency LINDA SAWYER APRN [facility] ER CONSTIPATION [id number] 05/04/2013 07:00:00 2012 12:55:00 DIS [facility] [id number] 04/29/2013 10:16:00 2012 23:59:59 CLS Outpatient ARIANA SEN MD [facility] PREOP GALLSTONES [id number] 03/19/2013 12:52:00 2012 14:03:00 DIS Outpatient DAQUAN AVENDANO MD [facility] REHAB CERVICALGIA, FIBROMYALGIA [id number] 01/29/2013 15:59:00 2012 23:59:59 CLS Outpatient DAQUAN AVENDANO MD [facility] RAD HEMOYPTYSIS SMALL VOLUME,TOBACCOISM [id number] 01/04/2013 08:40:00 2012 12:10:00 DIS Outpatient DAQUAN AVENDANO MD [facility] REHAB CERVICALGIA, FIBROMYALGIA [id number] 12/28/2012 09:05:00 2012 23:59:59 CLS Outpatient YAMILKA JIMENEZ MD [facility] RAD ABD PAIN, BLOATING [id number] 12/15/2012 15:20:00 2012 23:59:59 CLS Outpatient YAMILKA JIMENEZ MD [facility] RAD SCREENING [id number] 11/23/2012 09:13:00 2012 13:55:00 DIS Outpatient YAMILKA JIMENEZ MD [facility] VAGIONAL PROLAPSE; RECTOCELE [id number] 11/19/2012 12:10:00 2012 23:59:59 CLS Outpatient YAMILKA JIMENEZ MD [facility] PREOP VAGINAL PROLAPSE; RECTOCELE [id number] 11/28/2015 12:35:00 ACT Outpatient DENAE KEENAN MD [facility] RAD RT ANKLE PAIN [id number] 11/20/2015 12:08:00 ACT Outpatient PAMELA LLOYD [facility] CARD CAD,PALPATATIONS,REYNAUDS DISEASE [id number] 11/13/2015 10:31:00 ACT Outpatient JABARI HALL FACC, OBI GAMBOA CCDS [facility] ATHEROSCLEROTIC HEART DISEASE,PALPITATIONS, [id number] 10/26/2015 12:56:00 ACT Outpatient DAQUAN AVENDANO MD [facility] PAD, CAD, HYPOTHYROIDISM [id number] 10/20/2015 08:57:00 ACT Outpatient ROMELIA BRICEÑO MD [facility] CARD COMPRESSION FRACTURES [id number] 10/16/2015 16:28:00 ACT Outpatient DAQUAN AVENDANO MD [facility] RAD 2-3 WK SEVERE THORACIC BACK PAIN [id number] 10/09/2015 14:31:00 ACT Outpatient FARHAT BYRD MD [facility] POSSIBLE WOUND INFECTION, ODOMUS WOUND DRAINAGE [id number] 09/22/2015 13:55:00 ACT Outpatient FARHAT BYRD MD [facility] S/P CABG [id number] 07/04/2015 12:25:00 ACT Outpatient DAQUAN AVENDANO MD [facility] RAD CLAUDICATION [id number] 09/19/2014 14:56:00 Document Registration [id number] 01/17/2012 06:47:00 Document Registration [id number] 01/16/2012 07:32:00 Document Registration [id number] 11/28/2011 13:46:00 Document Registration [id number] 08/09/2011 11:05:00 Document Registration [id number] 07/10/2011 00:00:00 Document Registration [id number] 06/20/2011 10:38:00 Document Registration [id number] 11/29/2010 15:18:00 Document Registration [id number] 08/31/2010 13:37:00 Document Registration
[2017-01-03] MEDS ORDERED: D5 LR IV SOLUTION 1,000 ML IV ONE (09:15)
[2017-01-03 09:35] VITALS: BP 120/48
[2017-01-03] MEDS ORDERED: RANI-10 PO (10:17)
[2017-01-03] MEDS ORDERED: MIDAZOLAM 2 MG/2 ML (VERSED) VIAL ONE ×4 (10:27→11:09)
[2017-01-03] MEDS ORDERED: fentaNYL INJECTION 100 MCG/2 ML AMP ONE ×2 (10:28→11:06)
[2017-01-03] MEDS ORDERED: HURRICAINE EXT TUBE (BENZOCAINE) ONE (10:28)
[2017-01-03] MEDS ORDERED: LIDOCAINE JELLY 2% (XYLOCAINE) 5 ML TUBE ONE (10:28)
--- NOTE | 2017-01-03 10:28 | Pre-Op Note & Conscious Sedat ---
Pre-Operative Progress Note H&P Reviewed The H&P was reviewed, patient examined and no changes noted. Date H&P Reviewed: Jan 03, 2017 Time H&P Reviewed: 10:20 Conscious Sedation Pre-Proced ASA Class: 2 Airway Mallampati Classification: ([place] appropriate class) I. II. III, IV Lungs Heart ASA score ASA 1: a normal healthy patient ASA 2: a patient with a mild systemic disease (mid diabetes, controlled hypertension, obesity ASA 3: a patient with a severe systemic disease that limits activity (angina , COPD, prior Myocardial infarction) ASA 4: a patient with an incapacitating disease that is a constant threat to life (CHF, renal failure) ASA 5: a moribund patient not expected to survive 24 hrs. (ruptured aneurysm) ASA 6: a declared brain patient whose organs are being harvested. For emergent operations, add the letter E after the classification Grade 2 Sedation Plan: Analgesia, Amnesia, Plan communicated to team members, Discussed options with patient/fam, Discussed risks with patient/fam Note The patient is an appropriate candidate to undergo the planned procedure, sedation, and anesthesia. The patient immediately re-assessed prior to indication. DAQUAN AVENDANO MD Jan 03, 2017 10:28
[2017-01-03] MEDS: fentaNYL INJECTION 100 MCG/2 ML AMP IVP PRN ×4 (11:04→11:20)
[2017-01-03] MEDS: MIDAZOLAM 2 MG/2 ML (VERSED) VIAL IVP PRN ×4 (11:05→11:16)
[2017-01-03 11:40] VITALS: BP 116/58
[2017-01-03] MEDS ORDERED: HURRICAINE EXT TUBE (BENZOCAINE) XX ONE (11:45)
[2017-01-03] MEDS ORDERED: LIDOCAINE JELLY 2% (XYLOCAINE) 5 ML TUBE TOP ONE (11:45)
[2017-01-03 12:10] VITALS: BP 107/52
[2017-01-03] MEDS ORDERED: ONDANSETRON 4 MG/2 ML (SDV) Z0FRAN IVP ONE (12:10)
[2017-01-03 12:45] VITALS: BP 107/52
--- NOTE | 2017-01-04 11:14 | OPERATIVE REPORT ---
PROCEDURE PHYSICIAN: DAQUAN AVENDANO DATE OF PROCEDURE: 01/03/2017 EGD: PRIMARY CARE PROVIDER: Dr. Avendano PROCEDURE: EGD was performed for evaluation of dysphagia with globus sensation post right carotid endarterectomy. PROCEDURE: The patient was placed in left lateral decubitus position. The endoscope was inserted in the oral cavity and under direct visualization, the esophagus was intubated. The endoscope was passed down the esophagus, through the stomach, and into the second portion of the duodenum. A careful inspection was made as the endoscope was withdrawn. The patient tolerated the procedure well. FINDINGS: Careful inspection of the posterior hypopharynx, arytenoid aperture, true and false vocal folds, as well as visualization of the proximal roughly 5 cm of the trachea were performed. Photographic documentation was obtained. No abnormalities were noted in these areas. The endoscope was then inserted into the esophagus and passed through the stomach, and into second portion of the duodenum. Careful inspection was made as the endoscope was withdrawn. FINDINGS: The posterior hypopharynx, epiglottis, arytenoid aperture, true and false vocal folds, as well as proximal trachea were all visualized and unremarkable with no evidence for mechanical obstruction erythema or ulceration. The esophagus was unremarkable in appearance with distinct unremarkable Z line. No evidence for Landry's change was noted. No evidence for extrinsic compression was noted. The cardia, fundus and antrum of the stomach were unremarkable. The pylorus, the pyloric channel, the duodenal bulb, and second portion duodenum were unremarkable as well. ASSESSMENT: Normal EGD including careful attention to the posterior hypopharynx, epiglottis, arytenoid aperture, true and false vocal folds, as well as proximal trachea. The patient was reassured by today's findings. Job ID: [id number] Dictated Date: 01/03/2017 12:04:07 Library Associate Date: 01/04/2017 11:05:03 / renetta
== END 2017-01-03 12:45 | disposition home or self-care (01) ==
LOC: ENDO 09:03
PROVIDERS: ATTEND Internal Medicine
DX: R13.10 Dysphagia, unspecified (principal); Z98.890 Other specified postprocedural states

== ENCOUNTER 2019-04-30 09:44 | Outpatient (CLI) | payer MEDICARE, OTHER ==
[~2019-04-30] VITALS: Ht 152 cm; Wt 63.6 kg
[~2019-04-30 09:44] MED LIST changes: +AMLO5TAB9 PO; +IBUP-2185 PO; -IBUP200C75 PO; +RANI-10 PO
== END 2019-04-30 12:26 | disposition home or self-care (01) ==
LOC: PREOP 09:44
PROVIDERS: ATTEND Internal Medicine
DX: Z01.818 Encounter for other preprocedural examination (principal)

== ENCOUNTER → 2021-04-12 | Outpatient (CLI) | payer MEDICARE, OTHER ==
[~2021-04-12] MED LIST changes: +AMLO-250 PO; -AMLO5TAB9 PO; -RANI-10 PO; +RANI-626 PO
== END ==
LOC: CARD 13:00
PROVIDERS: ATTEND Internal Medicine Cardiovascular Disease
DX: I08.2 Rheumatic disorders of both aortic and tricuspid valves (principal); I25.10 Atherosclerotic heart disease of native coronary artery without angina pectoris
CPT/HCPCS: 93306

== ENCOUNTER 2021-12-05 14:06 | Outpatient (CLI) | payer MEDICARE, OTHER ==
[~2021-12-05] VITALS: Ht 154.9 cm; Wt 66.2 kg
[2021-12-05] MEDS ORDERED: FURO40TA4 PO ×2 (14:22)
[2021-12-05] MEDS ORDERED: METH-731 PO ×2 (14:22)
[2021-12-05] MEDS ORDERED: AMLO-250 PO ×2 (14:22)
[2021-12-05] MEDS ORDERED: CYAN100088 PO ×2 (14:22)
[2021-12-05] MEDS ORDERED: POTA-169 PO ×2 (14:22)
== END 2021-12-05 14:29 | disposition home or self-care (01) ==
LOC: PREOP 14:06
PROVIDERS: ATTEND Internal Medicine
DX: Z01.818 Encounter for other preprocedural examination (principal)

== ENCOUNTER 2021-12-07 09:25 | Day surgery (SDC) | payer MEDICARE, OTHER ==
--- NOTE | 2021-12-05 17:35 | HISTORY AND PHYSICAL ---
DATE OF SERVICE: EGD HISTORY AND PHYSICAL HISTORY OF PRESENT ILLNESS: The patient is a 71-year-old white female who reports she was in her usual state of health until when she started noticing epigastric pain with burning radiating up into the precordial area. She had been taking ibuprofen for back pain 600 mg 3 times a day prior to that and has been on chronic proton pump inhibitor therapy for gastroesophageal reflux. She noted that food improved her symptoms. Coffee immediately aggravated her discomfort and she has had some dysphagia to solids at times liquids with odynophagia. She will get temporary relief with antacid therapy and her symptoms have been waking her up at night. She denies melena or bright red blood per rectum or change in weight. She has no known past history of peptic ulcer disease. She does have past history of coronary artery disease and peripheral vascular disease as well as carotid disease status post bypass surgery in the past. PAST SURGICAL HISTORY: In addition to right CEA and right iliac stent placed in 2016. PHYSICAL EXAMINATION: GENERAL: Reveals a white female, appearing to be in mild distress. VITAL SIGNS: Weight 146 pounds, blood pressure 106/68. HEENT: Sclerae nonicteric. No evidence for pallor. CHEST: Reveals some bibasilar dry sounding rales, unchanged for her. CARDIOVASCULAR: Reveals a regular rate and rhythm. Soft, 1-2/6 systolic ejection murmur heard best at second right intercostal space without evidence for pulsus, parvus or tardus. No S3 or S4 noted. ABDOMEN: Soft, supple without mass or organomegaly. There is epigastric pain to palpation. No bruits are appreciated. Bowel sounds positive. No distention. EXTREMITIES: Reveal no cyanosis, clubbing or edema. ASSESSMENT: For further investigation of dysphagia and odynophagia, the patient is being set up for EGD this Friday. She will continue to abstain from nonsteroidal medication and she does not take aspirin. We will continue omeprazole and p.r.n. Mylanta in the interim with low acid diet. Job ID: [id number] DocumentID: [id number] Dictated Date: 12/05/2021 17:24:32 Television Director Date: 12/05/2021 17:35:27 Dictated By: DAQUAN AVENDANO MD
[~2021-12-07] VITALS: Ht 154.9 cm; Wt 66.2 kg
[~2021-12-07 09:25] MED LIST changes: +CYAN100088 PO; +FURO40TA4 PO; +METH-731 PO; +POTA-169 PO
[2021-12-07] MEDS ORDERED: LACTATED RINGERS 1,000 ML IV STA (09:31)
[2021-12-07 09:40] VITALS: BP 147/59
[2021-12-07] MEDS ORDERED: HURRICAINE EXT TUBE (BENZOCAINE) XX PRN (09:45)
--- NOTE | 2021-12-07 10:43 | Pre-Op Note & Conscious Sedat ---
Pre-Operative Progress Note H&P Reviewed The H&P was reviewed, patient examined and no changes noted. Date H&P Reviewed: Dec 07, 2021 Time H&P Reviewed: 10:15 Conscious Sedation Pre-Proced ASA Score 2 For ASA 3 and 4: Consider anesthesia and medical clearance. Also, for patients with a history of failed moderate sedation consider anesthesia. Airway Lungs Heart ASA score ASA 1: a normal healthy patient ASA 2: a patient with a mild systemic disease (mid diabetes, controlled hypertension, obesity ASA 3: a patient with a severe systemic disease that limits activity (angina, COPD, prior Myocardial infarction) ASA 4: a patient with an incapacitating disease that is a constant threat to life (CHF, renal failure) ASA 5: a moribund patient not expected to survive 24 hrs. (ruptured aneurysm) ASA 6: a declared brain- patient whose organs are being harvested. For emergent operations, add the letter E after the classification Mallampati Classification Grade 2 Sedation Plan Analgesia, Amnesia, Plan communicated to team members, Discussed options with patient/fam, Discussed risks with patient/fam The patient is an appropriate candidate to undergo the planned procedure, sedation, and anesthesia. The patient immediately re-assessed prior to indication. DAQUAN AVENDANO MD Dec 07, 2021 10:43
[2021-12-07] MEDS ORDERED: proPOfol 200 MG/20 ML (DIPRIVAN) VIAL IV ONE (11:05)
[2021-12-07 11:30] VITALS: BP 95/51
[2021-12-07 11:32] VITALS: BP 99/54
[2021-12-07 12:01] VITALS: BP 99/54
--- NOTE | 2021-12-07 12:23 | Anesthesia-General Post-Op ---
MAC Patient Condition Mental Status/LOC: Same as Preop Cardiovascular: Satisfactory Nausea/Vomiting: Absent Respiratory: Satisfactory Pain: Controlled Complications: Absent Post Op Complications Complications None Follow Up Care/Instructions Patient Instructions None needed. Anesthesiology Discharge Order Discharge Order Patient is doing well, no complaints, stable vital signs, no apparent adverse anesthesia problems. No complications reported per nursing. RAFAEL JUAREZ CRNA Dec 07, 2021 12:23
--- NOTE | 2021-12-07 18:49 | OPERATIVE REPORT ---
DATE OF SERVICE: EGD SUMMARY INDICATION FOR THE PROCEDURE: Epigastric pain with dysphagia. The patient was placed in the left lateral decubitus position. The endoscope was inserted in the oral cavity and under direct visualization, the esophagus was intubated. The endoscope was passed down the esophagus through stomach and second portion of the duodenum. Careful inspection was made as the endoscope was withdrawn. FINDINGS: The posterior pharynx, epiglottis, true and false vocal folds were unremarkable on gross inspection. The proximal and mid esophagus was unremarkable. There was a patchy area of erythema noted at the GE junction without evidence for ulceration, erosion or Landry's change. No rings, webs, strictures or evidence for extrinsic compression was noted. The cardia, fundus, antrum, pylorus, pyloric channel, duodenal bulb and second portion of the duodenum was unremarkable. ASSESSMENT: Small hiatal hernia was present with evidence for nonerosive esophagitis confined to the Z line. This is an otherwise normal EGD. Advocated continued proton pump inhibitor therapy and careful attention to mastication and slowing down eating time. Job ID: [id number] DocumentID: [id number] Dictated Date: 12/07/2021 11:25:24 Cigar Binder Date: 12/07/2021 18:48:46 Dictated By: DAQUAN AVENDANO MD
== END 2021-12-07 12:05 | disposition home or self-care (01) ==
LOC: ENDO 09:25
PROVIDERS: ATTEND Internal Medicine
DX: K21.00 Gastro-esophageal reflux disease with esophagitis, without bleeding (principal); K31.89 Other diseases of stomach and duodenum; K44.9 Diaphragmatic hernia without obstruction or gangrene; Z79.899 Other long term (current) drug therapy

== ENCOUNTER → 2022-03-25 | Outpatient (CLI) | payer MEDICARE ==
--- NOTE | 2022-03-25 14:31 | Diagnostic Imaging Report ---
Indication: Routine screening. Comparison is made with prior mammogram 09/19/2014 and 12/15/2012. 2-D and 3-D bilateral screening mammography was performed with CAD. CAD is utilized. The current study was also evaluated with a Computer Aided Detection (CAD) system. Both breasts are heterogeneously dense, limiting the sensitivity of mammography. Benign calcifications are noted bilaterally. Intraparenchymal lymph node in the outer left breast is stable. No spiculated mass or malignant-appearing microcalcifications are seen. Axillae are unremarkable. IMPRESSION: BI-RADS Category 2 No mammographic features suspicious for malignancy are identified. ACR BI-RADS Category 2: Benign findings. Result letter will be mailed to the patient. Note: At least 10% of breast cancer is not imaged by mammography. Dictated by: Dictated on workstation # [id number]
== END ==
LOC: RAD 12:17
PROVIDERS: ATTEND Internal Medicine
DX: Z12.31 Encounter for screening mammogram for malignant neoplasm of breast (principal)
CPT/HCPCS: 77063; 77067

== ENCOUNTER → 2022-10-04 | Outpatient (RCR) | payer MEDICARE | END | disposition home or self-care (01) | PROVIDERS: ATTEND Internal Medicine | DX: M54.2 Cervicalgia (principal); K21.9 Gastro-esophageal reflux disease without esophagitis ==

== ENCOUNTER 2022-10-25 13:38 | Outpatient (RCR) | payer MEDICARE | END 2022-10-27 17:00 | disposition home or self-care (01) | PROVIDERS: ATTEND Internal Medicine | DX: M54.2 Cervicalgia (principal); M40.202 Unspecified kyphosis, cervical region; K21.9 Gastro-esophageal reflux disease without esophagitis ==

== ENCOUNTER → 2022-12-25 | Outpatient (CLI) | payer MEDICARE ==
--- NOTE | 2022-12-25 09:04 | Diagnostic Imaging Report ---
EXAMINATION: US Abdomen limited. TECHNIQUE: Multiple real-time grayscale images were obtained over the right upper quadrant in various projections. REASON FOR EXAM: Abnormal LFTs. COMPARISON: 12/28/2012. FINDINGS: The liver is normal in size and shape. The liver echogenicity is within normal limits. There are no focal lesions. No intrahepatic biliary dilatation is present. The common bile duct is dilated and measures 11 mm. The main portal vein is hepatopedal. No ascites in the upper abdomen. The gallbladder surgically absent. Sonographic Jeff's sign is negative. The pancreas is not well visualized due to overlying bowel gas. The visualized portions of the IVC and aorta appear normal. The right kidney measures approximately 10 cm in length and has a normal appearance. IMPRESSION: 1. No cholelithiasis or acute cholecystitis. No liver or gallbladder abnormality detected. 2. Prominent common bile duct measuring 11 mm, likely due to postcholecystectomy changes. Dictated by: Dictated on workstation # [id number]
== END ==
LOC: RAD 07:17
PROVIDERS: ATTEND Allergy & Immunology
DX: R94.5 Abnormal results of liver function studies (principal); Z98.890 Other specified postprocedural states
CPT/HCPCS: 76705